=== PATIENT | female | born 1940 | race Native Hawaiian/Other Pacific Islander ===

== ENCOUNTER 2016-05-17 10:37 | Outpatient (CLI) | payer OTHER | END 2016-05-17 11:37 | disposition home or self-care (01) | LOC: MAMMO 10:37 | DX: Z12.31 Encounter for screening mammogram for malignant neoplasm of breast (principal); M81.0 Age-related osteoporosis without current pathological fracture | CPT/HCPCS: G0202-TC ==

== ENCOUNTER 2016-06-14 08:16 | Outpatient (CLI) | payer OTHER ==
[2016-06-14 08:46] LABS: PLATELET COUNT 273 K/uL (152-353)
== END 2016-06-14 09:16 | disposition home or self-care (01) ==
LOC: LABW 08:16
PROVIDERS: Internal Medicine
DX: E78.00 Pure hypercholesterolemia, unspecified (principal); E55.9 Vitamin D deficiency, unspecified; Z79.899 Other long term (current) drug therapy; Z51.81 Encounter for therapeutic drug level monitoring
CPT/HCPCS: 36415; 80053; 80061; 81000; 82306; 84443; 85027

== ENCOUNTER 2017-05-26 08:03 | Outpatient (CLI) | payer OTHER ==
[2017-05-26 08:23] LABS: PLATELET COUNT 255 K/uL (152-353)
[2017-05-26 08:57] LABS: POTASSIUM 4.2 mmol/L (3.6-5.2); SODIUM 137 mmol/L (136-145)
== END 2017-05-26 21:44 | disposition home or self-care (01) ==
LOC: LABW 08:03
PROVIDERS: Internal Medicine
DX: E78.00 Pure hypercholesterolemia, unspecified (principal); M85.88 Other specified disorders of bone density and structure, other site; E55.9 Vitamin D deficiency, unspecified; Z79.899 Other long term (current) drug therapy
CPT/HCPCS: 36415; 80053; 80061; 81000; 82306; 84443; 85027

== ENCOUNTER 2017-05-30 09:55 | Outpatient (CLI) | payer OTHER | END 2017-05-30 19:29 | disposition home or self-care (01) | LOC: MAMMO 09:55 | DX: Z12.31 Encounter for screening mammogram for malignant neoplasm of breast (principal) ==

== ENCOUNTER 2017-08-29 08:21 | Outpatient (CLI) | payer OTHER ==
[2017-08-29 09:01] LABS: PLATELET COUNT 241 K/uL (152-353)
[2017-08-29 09:15] LABS: POTASSIUM 3.9 mmol/L (3.6-5.2)
== END 2017-08-29 22:24 | disposition home or self-care (01) ==
LOC: LABW 08:21
PROVIDERS: Internal Medicine
DX: E78.00 Pure hypercholesterolemia, unspecified (principal); M81.0 Age-related osteoporosis without current pathological fracture; Z79.899 Other long term (current) drug therapy; Z51.81 Encounter for therapeutic drug level monitoring
CPT/HCPCS: 36415; 80053; 80061; 81000; 82306; 84443; 85027

== ENCOUNTER 2018-07-01 07:44 | Outpatient (CLI) | payer OTHER ==
[2018-07-01 08:23] LABS: PLATELET COUNT 251 K/uL (152-353)
[2018-07-01 08:41] LABS: POTASSIUM 4.3 mmol/L (3.6-5.2)
== END 2018-07-01 20:00 | disposition home or self-care (01) ==
LOC: LABW 07:44
PROVIDERS: Internal Medicine
DX: Z00.00 Encounter for general adult medical examination without abnormal findings (principal); E78.00 Pure hypercholesterolemia, unspecified; Z79.899 Other long term (current) drug therapy; Z13.820 Encounter for screening for osteoporosis; E55.9 Vitamin D deficiency, unspecified
CPT/HCPCS: 36415; 80053; 80061; 81000; 82306; 84439; 84443; 85027

== ENCOUNTER 2018-09-28 15:14 | Outpatient (CLI) | payer OTHER | END 2018-09-28 19:22 | disposition home or self-care (01) | LOC: RAD 15:14 → LABW 15:14 | DX: M79.89 Other specified soft tissue disorders (principal); R79.89 Other specified abnormal findings of blood chemistry; Z79.899 Other long term (current) drug therapy | CPT/HCPCS: 36415; 84439; 84443 ==

== ENCOUNTER 2018-10-16 09:41 | Outpatient (CLI) | payer OTHER | END 2018-10-16 21:38 | disposition home or self-care (01) | LOC: RAD 09:41 | DX: M25.472 Effusion, left ankle (principal) ==

== ENCOUNTER 2019-09-28 13:10 | Outpatient (CLI) | payer OTHER | END 2019-09-28 19:13 | disposition home or self-care (01) | LOC: LAB 13:10 | DX: R50.9 Fever, unspecified (principal) | CPT/HCPCS: 87635; G2023; U0002 ==

== ENCOUNTER 2019-11-24 07:49 | Outpatient (CLI) | payer OTHER ==
[2019-11-24 09:18] LABS: POTASSIUM 4.1 mmol/L (3.6-5.2)
[2019-11-24 09:48] LABS: PLATELET COUNT 211 K/uL (152-353)
== END 2019-11-24 20:21 | disposition home or self-care (01) ==
LOC: LABW 07:49
PROVIDERS: Internal Medicine
DX: Z00.00 Encounter for general adult medical examination without abnormal findings (principal); E78.00 Pure hypercholesterolemia, unspecified; Z13.820 Encounter for screening for osteoporosis; E55.9 Vitamin D deficiency, unspecified
CPT/HCPCS: 36415; 80053; 80061; 81000; 82306; 84439; 84443; 85027

== ENCOUNTER 2019-12-08 13:26 | Outpatient (CLI) | payer OTHER | END 2019-12-08 19:52 | disposition home or self-care (01) | LOC: MAMMO 13:26 | DX: Z12.39 Encounter for other screening for malignant neoplasm of breast (principal); Z12.31 Encounter for screening mammogram for malignant neoplasm of breast ==

== ENCOUNTER 2020-02-16 08:33 | Outpatient (CLI) | payer OTHER ==
[2020-02-16 09:56] LABS: PLATELET COUNT 220 K/uL (152-353)
== END 2020-02-16 22:46 | disposition home or self-care (01) ==
LOC: LABW 08:33
PROVIDERS: Internal Medicine
DX: E03.8 Other specified hypothyroidism (principal); D64.89 Other specified anemias
CPT/HCPCS: 36415; 84439; 84443; 85027

== ENCOUNTER 2020-12-26 08:56 | Outpatient (CLI) | payer OTHER | END 2020-12-26 21:20 | disposition home or self-care (01) | LOC: MAMMO 08:56 | PROVIDERS: ATTEND Internal Medicine | DX: Z12.31 Encounter for screening mammogram for malignant neoplasm of breast (principal); Z13.820 Encounter for screening for osteoporosis; N95.8 Other specified menopausal and perimenopausal disorders ==

== ENCOUNTER 2021-06-29 12:26 | Outpatient (CLI) | payer OTHER | END 2021-06-29 20:04 | disposition home or self-care (01) | LOC: LAB 12:26 | PROVIDERS: ATTEND Internal Medicine | DX: E03.8 Other specified hypothyroidism (principal); E78.00 Pure hypercholesterolemia, unspecified | CPT/HCPCS: 80061; 84439; 84443 ==

== ENCOUNTER 2021-11-01 08:57 | Outpatient (CLI) | payer OTHER | END 2021-11-01 19:52 | disposition home or self-care (01) | LOC: RAD 08:57 | PROVIDERS: ATTEND Internal Medicine | DX: U07.1 COVID-19 (principal); J40 Bronchitis, not specified as acute or chronic ==

== ENCOUNTER 2021-12-13 11:08 | Outpatient (CLI) | payer OTHER ==
[2021-12-13 11:27] LABS: PLATELET COUNT 229 K/uL (152-353)
[2021-12-13 12:04] LABS: POTASSIUM 4.2 mmol/L (3.6-5.2)
== END 2021-12-13 20:55 | disposition home or self-care (01) ==
LOC: LAB 11:08
PROVIDERS: ATTEND Internal Medicine
DX: Z00.00 Encounter for general adult medical examination without abnormal findings (principal); E03.8 Other specified hypothyroidism; E78.00 Pure hypercholesterolemia, unspecified; E55.9 Vitamin D deficiency, unspecified
CPT/HCPCS: 80053; 80061; 81002; 82306; 84439; 84443; 85027

== ENCOUNTER 2022-01-01 09:44 | Outpatient (CLI) | payer OTHER | END 2022-01-01 18:59 | disposition home or self-care (01) | LOC: MAMMO 09:44 | PROVIDERS: ATTEND Internal Medicine | DX: Z12.31 Encounter for screening mammogram for malignant neoplasm of breast (principal) ==

== ENCOUNTER 2022-10-16 14:29 | Outpatient (CLI) | payer OTHER | END 2022-10-16 19:23 | disposition home or self-care (01) | LOC: RAD 14:29 | PROVIDERS: ATTEND Internal Medicine | DX: R10.9 Unspecified abdominal pain (principal); M54.59 Other low back pain | CPT/HCPCS: 36415; 82565; 84520 ==

== ENCOUNTER 2023-01-01 13:17 | Outpatient (CLI) | payer OTHER ==
[2023-01-01 13:44] LABS: PLATELET COUNT 230 K/uL (152-353)
[2023-01-01 14:02] LABS: POTASSIUM 4.3 mmol/L (3.6-5.2)
== END 2023-01-01 21:22 | disposition home or self-care (01) ==
LOC: LAB 13:17
PROVIDERS: ATTEND Internal Medicine
DX: Z00.00 Encounter for general adult medical examination without abnormal findings (principal); Z13.820 Encounter for screening for osteoporosis; Z79.899 Other long term (current) drug therapy; E55.9 Vitamin D deficiency, unspecified
CPT/HCPCS: 80053; 80061; 81002; 82306; 84439; 84443; 85027

== ENCOUNTER 2023-01-15 10:54 | Outpatient (CLI) | payer OTHER | END 2023-01-15 19:03 | disposition home or self-care (01) | LOC: MAMMO 10:54 | PROVIDERS: ATTEND Internal Medicine | DX: Z12.31 Encounter for screening mammogram for malignant neoplasm of breast (principal); Z13.820 Encounter for screening for osteoporosis; N95.8 Other specified menopausal and perimenopausal disorders ==